=== PATIENT | female | born 1945 | race African-American/Black ===

== ENCOUNTER 2016-04-21 11:50 | Emergency (ER) | payer MEDICARE, MEDICAID ==
[2014-09-17 14:30] VITALS: BMI 29.4
[~2016-04-21 11:50] MED LIST: ALENDRONATE SOD70 MG PO; BAYER ASPIRIN325 MG PO; CATAPRES-T1 PATCH.WK TRANSDERM; LIPITOR10 MG PO; LISINOPRIL-HCTZ1 TA2 PO; NORVASC5 MG PO; VESICARE10 MG PO
== END 2016-04-21 13:35 | disposition home or self-care (01) ==
LOC: D.ER 11:50
DX: S70.01XA Contusion of right hip, initial encounter (principal); W19.XXXA Unspecified fall, initial encounter; Y93.89 Activity, other specified; Y92.89 Other specified places as the place of occurrence of the external cause; I10 Essential (primary) hypertension; E11.9 Type 2 diabetes mellitus without complications